=== PATIENT | male | born 1955 | race African-American/Black ===

== ENCOUNTER → 2020-02-16 | Outpatient (CLI) | payer OTHER ==
[~2020-02-16] MED LIST: ALLOPURINOL 10100 M1 PO; DICLOFENAC SODI75 MG PO; FISH OIL 1,0001 EAC9 PO; HYDROCHLOROTHIA25 M2 PO; LOSARTAN POTASS50 MG PO; NORVASC 2.5 MG2.5 M1 PO; NORVASC5 MG PO; PROCTOFOAM-HC F10 GM RC; VITAMIN D350 MC4 PO
== END ==
LOC: M.LAB 09:29
PROVIDERS: ATTEND Orthopaedic Surgery
DX: Z01.812 Encounter for preprocedural laboratory examination (principal); Z20.828 Contact with and (suspected) exposure to other viral communicable diseases; M75.121 Complete rotator cuff tear or rupture of right shoulder, not specified as traumatic

== ENCOUNTER 2020-02-21 10:35 | Observation (INO) | payer OTHER ==
[~2020-02-21] VITALS: Ht 190.5 cm; Wt 106.1 kg
--- NOTE | ~2020-02-21 | OP ---
[address] [address] OPERATIVE REPORT Name: ROSY FAYE Room: [address] Katelynn Middleton#: [id number] Admission: 02/21/20 Attend Phys: Rachel Clark Discharge: 02/22/20 Date of : 57 Report #: [id number] THIS REPORT FOR: //name// cc: Tyler Garcia John E. DO ~ CC: Matty Arce DATE OF SERVICE: 02/21/2020 PREOPERATIVE DIAGNOSIS: Right shoulder massive rotator cuff tear, 3/4 tendons with greater than 60% fatty atrophy of the muscle. 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 PROCEDURE: Right shoulder arthroscopy with superior capsular reconstruction, right biceps tenodesis. SURGEON: Matty Miguel DO VIDEO CAMERA OPERATOR: Wiliam Akbar DO ANESTHESIA: General and interscalene block. ANTIBIOTICS: Ancef. IV FLUIDS: 1400 mL lactated Ringer's. ESTIMATED BLOOD LOSS: 25 mL. COMPLICATIONS: None. SPECIMENS: None. DRAINS: None. CONDITION OF PATIENT: Stable to PACU. IMPLANTS: Arthrex superior capsular reconstruction with epidermal graft and knotless anchors on the glenoid and SpeedBridge fixation laterally. INDICATIONS FOR PROCEDURE: The patient presented to [facility] for right shoulder arthroscopy and superior capsular reconstruction. Saw him in [address] [address] OPERATIVE REPORT Name: ROSY FAYE Room: [address]Tiara#: [id number] Admission: 02/21/20 Attend Phys: Rachel Clark Discharge: 02/22/20 Date of : 57 Report #: [id number] clinic. We have gone over his diagnosis and options and exam findings and treatment options. He ultimately went to the superior capsular reconstruction. We went over the plan of surgery, risks and complications in detail not only in clinic, but today as well. He acknowledged, accepted risks and complications and wished to proceed with surgery. DESCRIPTION OF PROCEDURE: I marked the right upper extremity in the presence of operative team members. Everyone agreed correct. Anesthesia performed interscalene block. He was taken to the operative suite, placed on the table supine. General anesthetic administered. He was placed in the beach chair position, well-padded and secured appropriately. The right upper extremity was sterilely prepped and draped in standard fashion. Timeout was performed indicating correct patient, procedure, site, antibiotics and that implants were present and sterile. All team members agreed. We began with a posterior incision and introduced the trocar and camera into the glenohumeral joint, insufflated with normal saline at 30 mmHg localized an anterior portal with spinal needle and scalpel probe began the diagnostic portion of the exam, significant retraction and degeneration and atrophy of the rotator cuff all the way back to the glenoid into the subacromial space. Biceps had significant flap tearing and degeneration. We used scissors to perform a biceps tenotomy. Due to debrided down the remaining labrum, arthroscopic shaver was used to debride down the remaining stumps of what was left of the rotator cuff. The subscap appeared to be intact with only minimal tearing. The remaining 3 teres minor, infraspinatus, and supraspinatus were fully torn and retracted with atrophy. Once we had full visualization and clear out, we then placed 3 anchors knotless around the glenoid. One being anterior to the biceps anchor then the remaining being superior and spaced out appropriately and then we measured these appropriately for placement of our graft. These set very nicely and had knotless anchors coming out appropriately. The graft was thrown on to the back table for a superior capsular reconstruction. We placed our sutures through with the scorpion needle passer at the appropriately measured interval. We pulled out the sutures laterally. At that point in time with the mini open aspect of this procedure for passing of the graft and lateral fixation, scalpel was taken through skin, full thickness flaps down to the deltoid raphae found and incised that fascia and then bluntly worked through that interval keeping within 5 cm to avoid axillary nerve. We were able to pass our knotless anchor suture passer loops. Through those sutures that we had placed in the graft, pulled this through that went very nicely and sucked it down to the glenoid. We went back into the joint to confirm that the graft was lying nicely down along the glenoid and anchored appropriately and it was. Laterally, we then prepared out for anchor placement. We placed 2 for medial row and 2 for lateral row. These came together very nicely. Flushing down our graft creating a nice superior capsular reconstruction, no dog earring, sitting very nicely. We trimmed off the excess and cut the excess suture. All anchors had good fixation. We went back to the camera, which showed that we had actually lowered our humerus as well as goals sitting better within the joint. We had recreated [address] [address] OPERATIVE REPORT Name: ROSY FAYE Room: [address] ConcepcionTiara#: [id number] Admission: 02/21/20 Attend Phys: Rachel Clark Discharge: 02/22/20 Date of : 57 Report #: [id number] a nice superior capsule, saved those images, drained all fluid from the shoulder, removed the instruments. Closure of portal sites was with 3-0 nylon. The fascia was closed for the mini open was closed with 0 Vicryl, subcutaneous with 2-0 Monocryl and skin 3-0 nylon. Debriefing performed confirming procedure, blood loss and that all counts were correct and final. All team members agreed, placed into a slingshot sling. He was extubated and taken to PACU in stable. POSTOPERATIVE COURSE AND EVALUATION: I spoke with his significant other per his wishes. Addressed questions he had to satisfaction. He was thankful for my time and efforts. He was resting in PACU with stable vital signs, pain control. On vascular exam, he was well perfused neuro, still had a block intact. Compartments soft and compressible. Dressing clean, dry and intact. Nonweightbearing motion only at the elbow and distal. No motion of the shoulder at this time. Aspirin as directed for DVT prophylaxis as well as mechanical. Follow up in 2 weeks, sooner if need be. COVID protocol followed at all times. By: [id number] Miguel DO /nt
[2020-02-21 11:25] LABS: HEMATOCRIT 43.7 % (42.0-52.0); MCH 28.3 pg (26.0-34.0); MCHC 32.1 g/dL (28.0-37.0); MCV 88.1 fL (80.0-100.0); MPV 8.2 fl. (7.2-11.1); RBC 4.96 mil/uL (4.50-6.00); RDW-CV 13.5 % (10.5-14.5); WBC 4.6 thou/uL (4.0-11.0)
[2020-02-21 11:30] VITALS: BP 138/74
[2020-02-21 11:32] LABS: CALCIUM 8.6 mg/dL (8.5-10.1); CREATININE 1.1 mg/dL (0.6-1.3); POTASSIUM 3.8 mmol/L (3.5-5.1)
--- NOTE | 2020-02-21 13:01 | EKG ---
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[id number] Requested By: Matty Miguel Order Number: [id number] Lucy MD: Denys Badillo Measurements Intervals [place] Rate: 51 P: 47 [place]: 151 QRS: -22 QRSD: 93 T: 21 QT: 439 QTc: 405 Interpretive Statements Sinus bradycardia Borderline left axis deviation Abnormal R-wave progression, early transition No previous ECG available for comparison Electronically Signed On 02-21-2020 13:00:58 CDT by Denys Badillo [email or web address] <ELECTRONICALLY SIGNED> By: Denys Badillo MD, [facility] 02/21/20 1300 111 16 Denys Badillo MD, FACC /EPI
--- NOTE | 2020-02-21 18:02 | NUR ---
PT ADMITED POST OP SHOULDER SURGERY. PT ALERT AND ORIENTED. PT ORIENTED TO ROOM. FALL RISK PRECAUTIONS IN PLACE. WILL CONTINUE TO MONITOR.
[2020-02-21 18:06] VITALS: BP 119/60
--- NOTE | 2020-02-21 18:35 | NUR ---
PT REMAINED ALERT AND ORIENTED AND DROWSY. PT RESTING IN BED. PT ORIENTED TO ROOM. FALL RISK PRECAUTIONS IN PLACE. HOURLY ROUNDING COMPLETED. WILL CONTINUE TO [facility].
[2020-02-21 20:00] VITALS: BP 128/72
[2020-02-21 23:51] VITALS: BP 154/82
[2020-02-22 03:27] VITALS: BP 106/70
[2020-02-22 07:20] VITALS: BP 135/70
[2020-02-22 08:59] VITALS: BP 135/70
[2020-02-22 09:04] VITALS: BP 135/70
[2020-02-22] MEDS ORDERED: TRAMADOL 50 MG50 MG PO (09:43)
[2020-02-22] MEDS ORDERED: ASPIRIN325 PO (09:43)
[2020-02-22 11:24] VITALS: BP 135/82
--- NOTE | 2020-02-22 12:38 | NUR ---
PT GIVEN DISCHARGE INFORMATION, CARE NOTES, AND PRESCRIPTIONS. IV REMOVED. GRAFT INFORMATION GIVEN. PT DENIED ANY QUESTIONS OR CONCERNS AT THIS TIME. PT BELONGINGS GATHERED. PT LEFT VIA WHEELCHAIR WITH NURSING STAFF TO HOME WITH SPOUSE.
== END 2020-02-22 12:54 | disposition home or self-care (01) ==
LOC: M.SUR 10:35 → M.ORTHSURG 16:28 → M.TBA 16:28 → M.ORTHSURG 17:57
PROVIDERS: Orthopaedic Surgery; ADMIT Internal Medicine; ATTEND Internal Medicine
DX: M75.101 Unspecified rotator cuff tear or rupture of right shoulder, not specified as traumatic (principal); I10 Essential (primary) hypertension; M10.9 Gout, unspecified; M75.21 Bicipital tendinitis, right shoulder; M19.011 Primary osteoarthritis, right shoulder; Z79.899 Other long term (current) drug therapy

== ENCOUNTER → 2020-08-01 | Outpatient (CLI) | payer OTHER ==
[~2020-08-01] MED LIST changes: +ASPIRIN325 PO; +DICLOFENAC PO; +FLEXERIL PO; +HYDROCHLOROTH12.5 M1 PO; +OXYCODONE PO; +TRAMADOL 50 MG50 MG PO; +VOLTAREN GEL 1100 G1 TOP
== END ==
LOC: M.PC 09:00
PROVIDERS: ATTEND Physical Medicine & Rehabilitation
DX: M47.816 Spondylosis without myelopathy or radiculopathy, lumbar region (principal); M25.552 Pain in left hip

== ENCOUNTER → 2020-08-06 | Outpatient (CLI) | payer OTHER | END | disposition home or self-care (01) | LOC: M.PC 10:09 | PROVIDERS: ATTEND Physical Medicine & Rehabilitation | DX: M46.1 Sacroiliitis, not elsewhere classified (principal); Z79.899 Other long term (current) drug therapy ==

== ENCOUNTER → 2020-08-20 | Outpatient (CLI) | payer OTHER | LOC: M.PC 09:50 | PROVIDERS: ATTEND Physical Medicine & Rehabilitation | DX: M47.816 Spondylosis without myelopathy or radiculopathy, lumbar region (principal); M79.10 Myalgia, unspecified site ==

== ENCOUNTER → 2020-10-08 | Outpatient (CLI) | payer OTHER | END | disposition home or self-care (01) | LOC: M.PC 09:07 | PROVIDERS: ATTEND Physical Medicine & Rehabilitation | DX: M53.3 Sacrococcygeal disorders, not elsewhere classified (principal); M46.1 Sacroiliitis, not elsewhere classified; M54.5 Low back pain; I10 Essential (primary) hypertension; M19.90 Unspecified osteoarthritis, unspecified site; M10.9 Gout, unspecified; Z98.890 Other specified postprocedural states; Z79.899 Other long term (current) drug therapy ==

== ENCOUNTER → 2020-10-22 | Outpatient (CLI) | payer OTHER | LOC: M.PC 09:27 | PROVIDERS: ATTEND Physical Medicine & Rehabilitation | DX: M47.26 Other spondylosis with radiculopathy, lumbar region (principal); Z79.899 Other long term (current) drug therapy; Z79.891 Long term (current) use of opiate analgesic ==